=== PATIENT | male | born 1950 | race Caucasian/White ===

== ENCOUNTER 2020-10-27 16:18 | Emergency (ER) | payer OTHER ==
[2020-10-27 17:20] LABS: Hemoglobin 11.4 g/dL (14.0-18.0); Mean Corpuscular HGB CONC 33.9 g/dL (32.0-36.0); Mean Corpuscular Hemoglobin 32.3 pg (27.0-31.0); Mean Corpuscular Volume 95.2 fL (78.0-98.0); Mean Platelet Volume 9.8 fL (7.4-10.4); Platelet Count 175 thou/uL (130-400); RBC Distribution Width 12.2 % (11.5-14.5); Red Blood Cell (RBC) Count 3.53 mill/uL (4.70-6.10)
--- NOTE | 2020-10-27 17:35 | RAD ---
EXAM: Chest one view: HISTORY: Cough COMPARISON: 12/28/2019 FINDINGS: Heart size: Within normal limits. Lungs: Subtle haziness over the lower mid lung zones probably related to body habitus. No evidence for confluent lobar pneumonia, significant pleural effusion, acute edema, or pneumothorax , or other significant acute process. IMPRESSION: No significant acute intrathoracic disease. The patient has persistent or worsening symptoms consider short-term follow-up upright PA and lateral chest.
[2020-10-27 17:37] LABS: Band 19 % (5-11); Eosinophils 1 % (0-10); Lymphocytes 5 % (21-51); MDiff Complete? YES; Monocytes 15 % (0-10); Neutrophil 58 % (42-75); Platelet Morphology Comment Appears Adequate; Polychromasia SLIGHT = 2-3 cells (100X) (0-2/hpf); Reactive Lymphocytes 2 % (0-10)
[2020-10-27 17:44] LABS: ALT (SGPT) 17 U/L (8-55); AST (SGOT) 16 U/L (5-34); Albumin 3.4 g/dL (3.4-4.8); Alkaline Phosphatase 59 U/L (40-110); Anion Gap 17 mmol/L (10-20); BUN (Urea Nitrogen) 50 mg/dL (8.4-25.7); Bilirubin, Total 1.2 mg/dL (0.2-1.2); Calc. Creatinine Clearance 0 mL/min (70-130); Calcium 8.8 mg/dL (7.8-10.44); Carbon Dioxide 22 mmol/L (23-31); Chloride 95 mmol/L (98-107); Globulin 3.2 g/dL (2.4-3.5); Glucose 110 mg/dL (80-115); Potassium 3.7 mmol/L (3.5-5.1); Protein, Total 6.6 g/dL (5.8-8.1); Sodium 130 mmol/L (136-145)
[2020-10-27 18:13] LABS: Bilirubin Negative (Negative); Blood, Urine Trace (Negative); Clarity Clear (Clear); Glucose, Urine (Dipstick) Normal (Negative); Ketone, Urine Negative (Negative); Leukocyte 75 Leu/uL (Negative); Nitrite Negative (Negative); Protein, Urine (Dipstick) 20 mg/dL (Neg-Trace); RBC/HPF 0-3 HPF (0-3); Specific Gravity, Urine 1.012 (1.002-1.036); Squamous Epithelial 0-3 HPF (0-3); Urobilinogen Normal mg/dL (Less than 2); pH, Urine 5.5 (5.0-9.0)
[2020-10-27 18:14] LABS: Bacteria/HPF 1+ HPF (None Seen)
[2020-10-27] MEDS ORDERED: cefTRIAXone\\ROCEPHIN 2 GM VIAL ONE (18:47)
--- NOTE | 2020-10-27 19:37 | CT ---
Exam: Chest CT without contrast HISTORY: Cough. COMPARISON: None FINDINGS: Lower neck and axilla: No acute abnormality Aorta: Atherosclerosis. No aneurysm or periaortic fat stranding Mediastinum: Limited evaluation by the lack of IV contrast. No mass, lymphadenopathy or hematoma. No significant small hiatal hernia. Heart: No significant pericardial effusion. Scattered coronary calcifications. Subdiaphragmatic structures: Grossly no abnormality. Trachea and central bronchi: Patent Pneumothorax: None Pleural effusion: No significant pleural fluid Right lung: Minimal dependent atelectatic changes. No mass, consolidation or contusion. Minimal scarr ing in the right lower lobe Left lung: Dependent atelectatic changes. No mass, consolidation or contusion. Osseous structures: Chronic degenerative changes. IMPRESSION: No evidence of lung consolidation.
[2020-10-27] MEDS ORDERED: Azithromycin 500 MG VIAL ONE (20:43)
--- NOTE | 2020-10-27 21:09 | CT ---
ABDOMEN AND PELVIC CT SCAN WITHOUT IV CONTRAST: History: Pain Comparison: 10-05-19 FINDINGS: Minimal pleural thickening and pleural based parenchymal changes in the lung bases bilaterally. Small hiatal hernia. The liver, gallbladder, pancreas, and adrenal glands show no significant acute proces s. Status post splenectomy. Dilatation of both upper [place] renal extra renal collecting systems without ev idence for hydronephrosis or overt calculus. 4.1 cm diameter focal aneurysm of the infrarenal abdomin al aorta. 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 There does not appear to be alec hydronephrosis. There is moderate amount o f perirenal edema and fat stranding. There are some subtle low attenuation foci within the right pelv ic kidney including superiorly and mid portion medially and inferiorly, nonspecific, these changes co uld possibly represent some acute pyelonephritis. Other possibilities that could account for the justin renal edema and fat stranding could include renal vein thrombosis or possibly rejection. No abnormal fluid collection within the abdomen or pelvis. IMPRESSION: 1. Enlarged transplanted right pelvic kidney without overt hydronephrosis but with fairly marked justin renal edema and fat stranding with some low attenuation foci within the right kidney, possibly repres enting acute pyelonephritis. Other considerations would be that of renal vein thrombosis or possibly rejection. 2. 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 Status post splenectomy. POS: RRE
[2020-10-27 22:22] LABS: SARS-CoV-2 NAA Rapid Test Not Detected (NotDetected)
== END 2020-10-27 23:34 | disposition short-term general hospital (02) ==
LOC: ERS 16:18
DX: N12 Tubulo-interstitial nephritis, not specified as acute or chronic (principal); E11.9 Type 2 diabetes mellitus without complications; I10 Essential (primary) hypertension; E78.5 Hyperlipidemia, unspecified; N40.0 Benign prostatic hyperplasia without lower urinary tract symptoms; K21.9 Gastro-esophageal reflux disease without esophagitis; Z87.891 Personal history of nicotine dependence; Z79.899 Other long term (current) drug therapy
CPT/HCPCS: 36415; 71045; 71250; 74176; 80053; 81003; 81015; 83880; 84484; 85025; 87040; 87077; 87086; 87149; 87186; 93005; 96365; 96367; J0456; J0696; U0002

== ENCOUNTER 2022-06-06 13:35 | Emergency (ER) | payer MEDICARE | END 2022-06-06 16:43 | disposition home or self-care (01) | LOC: ERS 13:35 | DX: T82.590A Other mechanical complication of surgically created arteriovenous fistula, initial encounter (principal); I12.0 Hypertensive chronic kidney disease with stage 5 chronic kidney disease or end stage renal disease; E11.22 Type 2 diabetes mellitus with diabetic chronic kidney disease; N18.6 End stage renal disease; K21.9 Gastro-esophageal reflux disease without esophagitis; E78.5 Hyperlipidemia, unspecified; Z87.891 Personal history of nicotine dependence ==